=== PATIENT | female | born 1995 | race Caucasian/White ===

== ENCOUNTER 2017-07-31 19:33 | Emergency (ER) | payer SELFPAY ==
[2017-07-31] MEDS ORDERED: Bacitracin Oint 1 GM U/D Packet TOP ONE (20:29)
[2017-07-31] MEDS ORDERED: Bacitracin Oint 1 GM U/D Packet ONE (20:29)
--- NOTE | 2017-07-31 20:29 | EDM.PDOC ---
ED HPI GENERAL MEDICAL PROBLEM - General Chief Complaint: Upper Extremity Injury/Pain Stated Complaint: PT JOSEPH MEDELLIN Time Seen by Provider: 07/31/17 19:43 Source of Information: Reports: Patient History Limitations: Reports: No Limitations - History of Present Illness INITIAL COMMENTS - FREE TEXT/NARRATIVE: HISTORY AND PHYSICAL: History of present illness: Patient is a 21-year-old female who presents to the emergency room today with complaints of "infection" along the left fifth digit nail bed. She states she has had increased pain and noticed her finger becoming swollen and turning "white" over the past 5 days. She denies any fever, chills, chest pain, shortness of breath. Denies any abdominal pain, nausea, vomiting or diarrhea. She is able to use the hand and fully flex and extend all fingers on the affected extremity. His any numbness or tingling. Review of systems: As per history of present illness and below otherwise all systems reviewed and negative. Past medical history: As per history of present illness and as reviewed below otherwise noncontributory. Surgical history: As per history of present illness and as reviewed below otherwise noncontributory. Social history: No reported history of drug or alcohol abuse. Family history: As per history of present illness and as reviewed below otherwise noncontributory. Physical exam: Gen.: Well-developed and well-nourished 21-year-old -[place] female. Alert and oriented.. Appears nontoxic and in no acute distress. HEENT: Atraumatic, normocephalic, pupils reactive, negative for conjunctival pallor or scleral icterus, mucous membranes moist, throat clear, neck supple, nontender, trachea midline. Lungs: Clear to auscultation, breath sounds equal bilaterally. Heart: S1S2, regular rate and rhythm Abdomen: Soft, nondistended, nontender. Pelvis: Stable nontender. Genitourinary: Deferred. Rectal: Deferred. Extremities: Has full flexion and extension of the fingers of the left hand. Strong radial pulse. Capillary refill less than 3 seconds. Paronchyia noted along the left fifth digit nail bed, drains white yellow exudate. Neuro: Awake, alert, oriented. Cranial nerves II through XII unremarkable. Cerebellum unremarkable. Motor and sensory unremarkable throughout. Exam nonfocal. Upon arrival back into the treatment room the patient noted that her skin had slightly opened along the nail bed and was draining white/yellow fluid. Was able to express a large amount of pus from the site. A nonstick bacitracin dressing was applied. We'll place the patient on nuchal process and topically and oral antibiotics. We discussed wound care and appropriate follow-up. She voices understanding and is agreeable to plan of care. Diagnostics: Wound Culture Therapeutics: Bacitracin dressing Impression: Paronychia Plan: 1. Warm Epson salt soaks twice times per day x 5- 10 days. 2. Apply the mucoprocin ointment and as directed 3. An oral antibiotic has been prescribed for you swell. Please take as directed. 4. Ultram has been prescribed for pain. This is narcotic and may make you drowsy to do not take it while driving or needing to be functioning at work. He may take Tylenol and/or ibuprofen for daytime use. 5. Follow-up with your primary care provider in the next 1-2 days. Return to the ED as needed and as discussed. Definitive disposition and diagnosis as appropriate pending reevaluation and review of above. Duration: Day(s): Location: Reports: Upper Extremity, Left left little finger Pain Score (Numeric/FACES): 8 - Related Data Allergies Allergy/AdvReac Type Severity Reaction Status Date / Time No Known Allergies Allergy Verified 07/31/17 19:41 Home Meds: Home Meds . [No Known Home Meds] 07/31/17 [History] Past Medical History - Past Health History Medical/Surgical History: Denies Medical/Surgical History Social & Family History - Family History Family Medical History: Noncontributory - Tobacco Use Smoking Status *Q: Never Smoker - Recreational Drug Use Recreational Drug Use: Yes Drug Use in Last 12 Months: Yes Recreational Drug Type: Reports: Marijuana/Hashish Review of Systems - Review of Systems Review Of Systems: ROS reveals no pertinent complaints other than HPI. ED EXAM, GENERAL - Physical Exam Exam: See Below (See dictation) Course - Vital Signs Last Recorded V/S: Last Vital Signs Temp 98.5 F 07/31/17 19:33 Pulse 102 H 07/31/17 19:33 Resp 18 07/31/17 19:33 BP 118/81 07/31/17 19:33 Pulse Ox - Orders/Labs/Meds Meds: Medications Discontinued Medications Generic Name Dose Route Start Last Admin Trade Name Kleber PRN Reason Stop Dose Admin Bacitracin 1 dose 07/31/17 20:29 07/31/17 20:32 Bacitracin Oint 1 Gm TOP 07/31/17 20:30 1 dose ONETIME ONE Administration Bacitracin Confirm 07/31/17 20:29 Bacitracin Oint 1 Gm Administered 07/31/17 20:30 Dose 1 dose .ROUTE .STK-MED ONE Departure - Departure Time of Disposition: 20:29 Disposition: Home, Self-Care Clinical Impression: Paronychia of finger Qualifiers: Laterality: left Qualified Code(s): L03.012 - Cellulitis of left finger - Discharge Information Instructions: Paronychia, [id number] Referrals: PCP,None [Primary Care Provider] - Forms: ED Department Discharge Additional Instructions: My general discharge The following information is given to patients seen in the emergency department who are being discharged to home. This information is to outline your options for follow-up care. We provide all patients seen in our emergency department with a follow-up referral. The need for follow-up, as well as the timing and circumstances, are variable depending upon the specifics of your emergency department visit. If you don't have a primary care physician on staff, we will provide you with a referral. We always advise you to contact your personal physician following an emergency department visit to inform them of the circumstance of the visit and for follow-up with them and/or the need for any referrals to a consulting specialist. The emergency department will also refer you to a specialist when appropriate. This referral assures that you have the opportunity for follow-up care with a specialist. All of these measure are taken in an effort to provide you with optimal care, which includes your follow-up. Under all circumstances we always encourage you to contact your private physician who remains a resource for coordinating your care. When calling for follow-up care, please make the office aware that this follow-up is from your recent emergency room visit. If for any reason you are refused follow-up, please contact the [facility] at and asked to speak to the emergency department charge nurse. [facility] [address] [place] [id number] 1. Warm Epson salt soaks twice times per day x 5- 10 days. 2. Apply the mucoprocin ointment and as directed 3. An oral antibiotic has been prescribed for you swell. Please take as directed. 4. Ultram has been prescribed for pain. This is narcotic and may make you drowsy to do not take it while driving or needing to be functioning at work. He may take Tylenol and/or ibuprofen for daytime use. 5. Follow-up with your primary care provider in the next 1-2 days. Return to the ED as needed and as discussed.
== END 2017-07-31 20:50 | disposition home or self-care (01) ==
LOC: MW.ED 19:33
DX: L03.012 Cellulitis of left finger (principal)
CPT/HCPCS: 87070; 87077; 87186; 99282; 99283